=== PATIENT | male | born 1990 ===

== ENCOUNTER 2019-10-10 02:03 | Emergency (ER) ==
--- NOTE | 2019-10-10 18:32 | EKG REPORT ---
SEVERITY:- NORMAL ECG - SINUS RHYTHM ST ELEV, PROBABLE NORMAL EARLY REPOL PATTERN : Confirmed by: Mike Bah MD 10-Oct-2019 18:31:29
== END 2019-10-10 04:00 | disposition left against medical advice (07) ==
LOC: ER 02:03
DX: Z53.21 Procedure and treatment not carried out due to patient leaving prior to being seen by health care provider (principal)
CPT/HCPCS: 93005; 93010